=== PATIENT | female | born 1970 | race Caucasian/White ===

== ENCOUNTER → 2016-10-28 | Outpatient (CLI) | payer OTHER | LOC: FIMAGING 13:17 | PROVIDERS: ATTEND Obstetrics & Gynecology | DX: R92.0 Mammographic microcalcification found on diagnostic imaging of breast (principal) | CPT/HCPCS: G0206 ==

== ENCOUNTER 2016-11-04 05:38 | Day surgery (SDC) | payer OTHER ==
--- NOTE | 2016-10-26 14:08 | GHP ---
[f rep st] PREOP HISTORY AND PHYSICAL SCHEDULED DATE OF SURGERY: November 04, 2016 at 7:15 a.m. SURGERY TO BE PERFORMED: Hysteroscopy, dilation and curettage, polypectomy with morcellator, and Rebecca endometrial ablation. PREOPERATIVE DIAGNOSIS: Menorrhagia and endometrial polyp. HISTORY OF PRESENT ILLNESS: The patient is a 46-year-old, 3, para 1-0-2 -2, who has a longstanding history of menorrhagia and increased heavy cycles that are getting worse over the last couple years. She currently has heavy flow and significant cramps during several days of her monthly period. She has to change a super tampon every hour, and she has significant cramping inhibiting her ability to work and take care of her kids. She needs to have scheduled ibuprofen and that does not work all of the time. She was initially open to conception and considering IVF, but over the last couple years, she has been dissuaded from that idea, so initially in June, I offered her control pills to try to control her periods, her bleeding, and she had a pelvic ultrasound. Pelvic ultrasound initially revealed 2 small intramural fibroids which were stable in size and an endometrial stripe that had 2 hyperechoic masses that were small, a couple millimeters each with feeder vessels, questionable endometrial polyps. Ovaries were fine. She tried Lo Loestrin Fe and had minimal improvement in her menstrual flow and had significant irritability, weight gain, bloating, and other side effects from the pill that she was not happy about. She discontinued her pills after 2 months. Repeat pelvic ultrasound showed a thickened endometrial stripe that was 1.14 cm, continued to show hypokalemic areas with vascular stalks, appearance of atypical polyps. The patient was offered surgical management or medical management with another oral contraceptive pill or the Mirena IUD. The patient waited another month and then has decided she wished to have surgical management with hysteroscopy, D and C, and polypectomy. I discussed the pros and cons of an endometrial ablation to treat the endometrium in hopes of achieving amenorrhea and prevention of further polyp formation in the next couple years and the patient is in agreement with this. As part of her workup, she underwent an endometrial biopsy that shows interval phase endometrium, no hyperplasia or malignancy, and it did reveal benign endocervical polyps. PAST GYNECOLOGICAL HISTORY: She had a complicated with a triplet in 2003. She had 3 boys. They were delivered prematurely and 1 at age 7 months. She now has identical twins and they are healthy at age 13. She also had 1 ectopic in 2002 and therapeutic in 1983. No other obstetrical history. GYNECOLOGICAL HISTORY: Infertility and a complicated history. She also has a longstanding history of menometrorrhagia and dysmenorrhea. No history of abnormal Paps. Her most recent Pap was in June of 2016 and she has no history of any STDs. PAST MEDICAL HISTORY: She has no chronic medical conditions. MEDICATIONS: Her only current medications she takes are multivitamins and she had tried the pill. SURGERIES: She had a for her delivery of her children. No other surgical history. ALLERGIES: No known drug allergies. SOCIAL HISTORY: She is . She has twin boys who are age 12. 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 She denies tobacco, has social alcohol 4 nights a week. No drug use. Moderate caffeine use. Heavy exercises, running, weights, and biking. FAMILY HISTORY: Her mother is diagnosed with multiple myeloma. Her grandparents had colon cancer. Mom has thyroid disease. Maternal grandmother had diabetes. No other significant family history. REVIEW OF SYSTEMS: A complete review of systems today was negative for any systemic systems, cardiovascular, respiratory, gastrointestinal, urinary, psychological, integument, or any other systems, only pertinent for her gynecological problems of menometrorrhagia. OBJECTIVE: VITAL SIGNS: Her blood pressure is 106/58. Weight is 115 pounds. BMI is 21. GENERAL: She is well-developed, thin white female, in no acute distress. LUNGS: Clear to auscultation bilaterally. HEART: Regular rate and rhythm. No murmurs. ABDOMEN: Soft, nontender, nondistended. Normal bowel sounds. PELVIC: Exam is normal. External genitalia normal nulliparous cervix. Uterus is anteverted, anteflexed, mobile, nontender and endometrial biopsy results were as above. ASSESSMENT AND PLAN: A 46-year-old, 3, para 1-0-2-2, with menometrorrhagia and endometrial polyps. She desired a hysteroscopy, dilatation and curettage, and polypectomy and endometrial ablation today. She was consented for the procedure. She understands the risks and benefits, the risks including bleeding, infection, damage to the uterus including possible risk of perforation, damage to other organs if perforation were to occur, need for additional procedures, electrolyte imbalances, and incomplete treatment of her bleeding. She understands these risks and benefits, and agreed to proceed. /[id number]/MODL MTDD
[2016-11-04] MEDS ORDERED: LIDOCAINE 1% 2 ML INJ ONE (05:51)
[2016-11-04] MEDS ORDERED: fentaNYL 100 MCG/2 ML INJ ONE ×2 (07:12→09:20)
[2016-11-04] MEDS ORDERED: PROPOFOL 200 MG/20 ML VIAL ONE (07:14)
[2016-11-04] MEDS ORDERED: MIDAZOLAM 2 MG/2 ML VIAL ONE (07:19)
[2016-11-04] MEDS ORDERED: SILVER NITRATE APPLICATOR 1 APPL TP ONE (07:23)
[2016-11-04] MEDS ORDERED: HYDROCODONE/APAP 5/325 TAB ONE (09:20)
[2016-11-04] MEDS ORDERED: HYDROCODONE/APAP 5/325 TAB PO PRN (09:27)
--- NOTE | 2016-11-04 12:52 | GOP ---
[f rep st] OPERATIVE REPORT DATE OF OPERATION: 11/04/2016 SURGEON: Irene Cruz MD ANESTHESIA: General anesthesia. ANESTHESIOLOGIST: Dr. Jasson Melissa. PREOPERATIVE DIAGNOSIS: Menometrorrhagia and endometrial polyps. POSTOPERATIVE DIAGNOSIS: Menometrorrhagia and endometrial polyps. PROCEDURE PERFORMED: Hysteroscopy, dilatation and curettage, polypectomy with morcellator, and Mine rva endometrial ablation. FINDINGS: SPECIMENS: Endometrial contents. ESTIMATED BLOOD LOSS: 50 cc. INDICATIONS: The patient is a 46-year-old, 3, para 1-0-2-2, who had a long-standing history of menometrorrhagia, increased heavy cycles, getting worse over the last few years. She currently has heavy flow and significant cramps during several days of her monthly period, where she has to ch martin a super tampon every hour, and significant cramping inhibiting her ability to work and take car e of her kids. She was initially treated with oral contraceptive pills, and she had minimal improve ment in her menstrual flow, significant irritability, weight gain, bloating, and other side effects from the pill, and she discontinued it after 2 months. Pelvic ultrasound revealed a thickened endom etrial stripe that was 1.14 cm, showing hyperechoic areas with vascular stalks, appearance of polyps . Patient was offered surgical management with hysteroscopy, D and C, polypectomy with morcellator, plus or minus the Rebecca endometrial ablation. She has decided to abandon her thought of future f ertility with IVF, and she desires now an endometrial ablation. She had an endometrial biopsy in [facility] office, which showed normal proliferative endometrium. The patient was consented for the procedur e. She understood the risks and benefits. The risks including bleeding, infection, damage to the u terus, including possible risk of perforation, damage to other organs if perforation were to occur, risk of incomplete treatment of her bleeding, and need for additional procedures, and electrolyte im balances from hysteroscopy. She understood these risks and benefits, and agreed to proceed. DESCRIPTION OF PROCEDURE: Patient was taken to the operating room, where she was placed under gener al anesthesia without difficulty. She was prepped and draped in the dorsal lithotomy position, and her bladder was drained with a red rubber catheter. After a WHO time-out was performed, and adequat e anesthesia was assured, an open-sided speculum was placed in the vagina, and a single-tooth tenacu lum was used to grasp the anterior lip of the cervix. The uterus initially sounded to 9 cm. The ce rvix was then progressively dilated with Hegar dilators to a #6, and the TruClear hysteroscope was p laced through the cervix and advanced to the fundus. Inspection of the endometrial cavity revealed multiple areas of endometrial polyps, thickened tissue, and the entire endometrial cavity was diffic ult to assess. Tubal ostium was visualized on the right, but was not able to be assessed on the lef t initially. The polyp blade morcellator was advanced through the operative channel, and window loc k was performed, and then morcellation was carried out through the entire endometrial cavity, and ti ssue was removed until a clear picture of the fundus, as well as both tubal ostia, was revealed, and there were no further polyps or tissue seen, and patient had good hemostasis through this process, the hysteroscope was then removed, and upon sounding again, the uterus sounded to 10 cm. The Minerv a endometrial ablation device was advanced from the cervix and advanced to the fundus, and the blade s were opened. The balloon was inflated, cavity assessment was passed, and Rebecca endometrial abla tion was performed over 120 seconds. The ablation device was then removed, and 1 final pass of the inspection revealed charred endometrium with a good ablative effect. The devices were removed. The single-tooth tenaculum was removed. There was a fair amount of bleeding from the tenaculum sites. Silver nitrate was applied, but was not effective, and so the tenaculum sites were then sewn with a [id number] suture of 3-0 Vicryl, and hemostasis was obtained. The patient tolerated the proce dure well. Sponge, lap, needle, and instrument counts were correct x2. Patient went to the recover y room in good condition. IV FLUIDS: 800 cc. URINE OUTPUT: Not measured. /[id number]/MODL
== END 2016-11-04 11:45 | disposition home or self-care (01) ==
LOC: FSGY 05:38
PROVIDERS: ATTEND Obstetrics & Gynecology
DX: N84.0 Polyp of corpus uteri (principal); N92.1 Excessive and frequent menstruation with irregular cycle
CPT/HCPCS: 58563; C1782; J2250; J2704; J3010

== ENCOUNTER → 2017-04-27 | Outpatient (CLI) | payer OTHER | LOC: FIMAGING 08:51 | PROVIDERS: ATTEND Obstetrics & Gynecology | DX: Z12.31 Encounter for screening mammogram for malignant neoplasm of breast (principal) | CPT/HCPCS: G0202 ==

== ENCOUNTER → 2018-05-03 | Outpatient (CLI) | payer OTHER | LOC: FIMAGING 10:45 | PROVIDERS: ATTEND Family Medicine | DX: Z12.31 Encounter for screening mammogram for malignant neoplasm of breast (principal) ==

== ENCOUNTER → 2018-09-20 | Outpatient (CLI) | payer OTHER | LOC: FIMAGING 08:49 ==